=== PATIENT | female | born 1995 | race Two or more races ===

== ENCOUNTER 2021-09-24 08:48 | Outpatient (CLI) | payer BC, OTHER ==
[2021-09-24 09:15] LABS: HEMATOCRIT 38.6 % (31.2-41.9); MEAN CORPUSCULAR HEMOGLOBIN 31.3 uug (24.7-32.8); MEAN CORPUSCULAR VOLUME 91.7 fL (75.5-95.3); PLATELET COUNT (AUTO) 160 K/uL (179-408)
[2021-09-24 09:30] LABS: THYROID STIMULATING HORMONE 1.303 mIU/mL (0.358-3.740)
[2021-09-24 09:34] LABS: *BILIRUBIN,URIN NEGATIVE (NEGATIVE); *BLOOD, URINE NEGATIVE (NEGATIVE); *CLARITY,URINE CLEAR (CLEAR); *COLOR,URINE YELLOW (YELLOW); *KETONES,URINE NEGATIVE (NEGATIVE); *UROBILINOGEN,URINE 0.2 E.U./dl (NORMAL); LEUKOCYTE ESTERASE ,URINE NEGATIVE (NEGATIVE); NITRITE, URINE NEGATIVE (NEGATIVE); UGLUCOSE NEGATIVE (NEGATIVE)
[2021-09-24 09:48] LABS: BILIRUBIN,TOTAL 0.5 mg/dL (0.2-1.0); CREATININE 0.7 mg/dL (0.6-1.3); POTASSIUM 3.7 mmol/L (3.5-5.1); TOTAL PROTEIN, SERUM 7.2 g/dL (6.4-8.2); URIC ACID 5.5 mg/dL (2.6-6.0)
[2021-09-25 07:07] LABS: TRIIODOTHYRONINE, FREE 2.9 pg/mL (2.0-4.4)
== END 2021-09-24 23:59 | disposition home or self-care (01) ==
LOC: LAB 08:48
PROVIDERS: ATTEND Family Medicine
DX: E55.9 Vitamin D deficiency, unspecified (principal); Z00.01 Encounter for general adult medical examination with abnormal findings
CPT/HCPCS: 36415; 82306; 82746; 83550; 83735; 84443; 84481; 84550; 85025